=== PATIENT | male | born 1980 | race Caucasian/White ===

== ENCOUNTER 2016-12-26 21:51 | Emergency (ER) | payer MEDICAID ==
[2016-12-26] MEDS ORDERED: OXYCODONE/APAP 5/325 TAB PO ONE (23:33)
[2016-12-26] MEDS ORDERED: PENICILLIN VK 500 MG TAB PO ONE (23:33)
[2016-12-26] MEDS ORDERED: IBUPROFEN 600 MG TAB PO ONE (23:33)
[2016-12-26] MEDS ORDERED: PENICILLIN VK 250 MG TAB ONE (23:35)
--- NOTE | 2016-12-26 23:37 | EDPHY ---
H & P Time Seen by Provider: 12/26/16 23:19 HPI/ROS: CHIEF COMPLAINT: Toothache HISTORY OF PRESENT ILLNESS: This is a 36-year-old male presenting to the emergency department complaining of left lower dental pain x2 days. Patient states it has been a long time since he has seen a dentist denies any fever nausea vomiting. Intermittent smoker. Denies any chest pain or shortness of breath REVIEW OF SYSTEMS: Constitutional: No fever, no chills. Decreased p.o. intake due to dental pain Eyes: No discharge. No blurred vision ENT: No sore throat. Toothache Cardiovascular: No chest pain, no palpitations. Respiratory: No cough, no shortness of breath. Gastrointestinal: No abdominal pain, no vomiting. Musculoskeletal: No back pain. Skin: No rashes. Neurological: No headache. Smoking Status: Current some day smoker Physical Exam: General Appearance: Alert and no distress. Appears uncomfortable Eyes: Pupils equal and round no injection. Mouth: Many dental caries mandibular and maxillary, missing teeth, broken teeth no trismus no drooling no facial swelling Respiratory: Nonlabored respiratory effort. Cardiac: regular rate and rhythm Musculoskeletal: Neck is supple and nontender. Extremities: full range of motion and are nontender. Skin: No rashes or lesions. Constitutional: Initial Vital Signs Temperature (C) 37 C 12/26/16 22:00 Heart Rate 98 12/26/16 22:00 Respiratory Rate 18 12/26/16 22:00 Blood Pressure 112/82 H 12/26/16 22:00 O2 Sat (%) 95 12/26/16 22:00 O2 Delivery Mode Room Air Allergies/Adverse Reactions: No Known Allergies Allergy (Unverified 12/26/16 22:00) Home Medications: Medication Instructions Recorded Penicillin V Potassium [Pen Vk 500 mg PO QID 10 Days 12/26/16 500mg (*)] oxyCODONE/APAP 5/325 [Percocet 1 - 2 tab PO Q4H PRN #20 tab 12/26/16 5/325 (*)] Medical Decision Making ED Course/Re-evaluation: Discussed ED plan of care: Pain meds, Pen-VK. Discussed dental block for patient he declined at this time 0030: Patient re-evaluation patient stable not in any distress, declines dental block for pain. Discharge home, discussed discharge instructions, patient to follow up with dental this week Differential Diagnosis: Other differential diagnosis considered but not limited to dental abscess, mastoiditis, and facial cellulitis - Data Points Medications Given: Discontinued Medications Ibuprofen (Motrin) 600 mg PO EDNOW ONE Stop: 12/26/16 23:34 Last Admin: 12/26/16 23:42 Dose: 600 mg Oxycodone/Acetaminophen (Percocet 5/325) 1 tab PO EDNOW ONE Stop: 12/26/16 23:34 Last Admin: 12/26/16 23:42 Dose: 1 tab Oxycodone/Acetaminophen (Percocet 5/325mg Prepack#4) 1 btl TAKEHOME EDNOW ONE Stop: 12/26/16 23:57 Last Admin: 12/27/16 00:22 Dose: 1 btl Penicillin V Potassium (Pen Vk) 500 mg PO EDNOW ONE PRN Reason: Protocol Stop: 12/26/16 23:34 Last Admin: 12/26/16 23:54 Dose: Not Given Penicillin V Potassium (Pen Vk) 250 mg PO EDNOW ONE PRN Reason: Protocol Stop: 12/26/16 23:40 Last Admin: 12/26/16 23:42 Dose: 250 mg Penicillin V Potassium (Pen Vk) 250 mg PO EDNOW ONE PRN Reason: Protocol Stop: 12/26/16 23:41 Last Admin: 12/26/16 23:42 Dose: 250 mg Departure - Departure Disposition: Home, Routine, Self-Care Clinical Impression: Toothache, Dental caries extending into dentin Condition: Good Instructions: Penicillin V (By mouth), Oxycodone/Acetaminophen (By mouth), Dental Abscess (ED), Dental Caries (ED), Toothache (ED) Referrals: Dental 911 [Outside] - As per Instructions [facility] [Outside] - As per Instructions NONE *PRIMARY CARE P,. [Primary Care Provider] - As per Instructions [facility],. [Clinic] - As per Instructions Prescriptions: oxyCODONE/APAP 5/325 [Percocet 5/325 (*)] 1 - 2 tab PO Q4H PRN #20 tab PRN Reason: Pain, Severe Penicillin V Potassium [Pen Vk 500mg (*)] 500 mg PO QID 10 Days
[2016-12-26] MEDS ORDERED: PENICILLIN VK 250 MG TAB PO ONE ×2 (23:39→23:40)
[2016-12-26] MEDS ORDERED: OXYCODONE/APAP 5/325MG PREPACK#4 BTL TAKEHOME ONE (23:56)
[2016-12-27] MEDS ORDERED: PENICILLIN VK 500 MG TAB PO SCH
[2016-12-27 00:26] VITALS: BP 112/73; PULSE 70; RESP 16; TEMP 98.2; O2SAT 96
== END 2016-12-27 00:26 | disposition home or self-care (01) ==
DX: K08.89 Other specified disorders of teeth and supporting structures (principal); K02.9 Dental caries, unspecified; F17.200 Nicotine dependence, unspecified, uncomplicated

== ENCOUNTER 2016-12-27 03:44 | Emergency (ER) | payer MEDICAID ==
[2016-12-27 03:54] VITALS: BP 132/80; PULSE 90; RESP 18; TEMP 98.6; O2SAT 93
--- NOTE | 2016-12-27 04:22 | EDPHY ---
H & P Stated Complaint: dental abcess Time Seen by Provider: 12/27/16 04:18 HPI/ROS: Chief Complaint: Dental pain HPI: 36-year-old male was seen earlier tonight with dental pain. He is coming back stating that he is continuing to have pain and does not have a place to sleep. He was given penicillin and Percocet in the emergency department. He has been able to eat and drink since that time. Patient states he is just having a hard time finding a place to sleep and so re-presented to the emergency department hoping to stay here. Exam: General: Awake alert no acute distress HEENT: No significant submandibular swelling, no erythema Neck: Supple, chest: Normal respirations Heart: Normal perfusion Skin: No rash Neuro: Cranial nerves 2-12 are intact, strength is 5 in 5 in bilateral upper lower extremities, sensation grossly intact - Personal History Current Tetanus/Diphtheria Vaccine: Unsure Current Tetanus Diphtheria and Acellular Pertussis (TDAP): Unsure - Medical/Surgical History Hx Asthma: No Hx Chronic Respiratory Disease: No Hx Diabetes: No Hx Cardiac Disease: No Hx Renal Disease: No Hx Cirrhosis: No Hx Alcoholism: No Hx HIV/AIDS: No Hx Splenectomy or Spleen Trauma: No - Social History Smoking Status: Current some day smoker Constitutional: Initial Vital Signs Temperature (C) 37 C 12/27/16 03:50 Heart Rate 90 12/27/16 03:50 Respiratory Rate 18 12/27/16 03:50 Blood Pressure 132/80 H 12/27/16 03:50 O2 Sat (%) 93 12/27/16 03:50 O2 Delivery Mode Room Air Allergies/Adverse Reactions: No Known Allergies Allergy (Unverified 12/26/16 22:00) Home Medications: Medication Instructions Recorded Penicillin V Potassium [Pen Vk 500 mg PO QID 10 Days 12/26/16 500mg (*)] oxyCODONE/APAP 5/325 [Percocet 1 - 2 tab PO Q4H PRN #20 tab 12/26/16 5/325 (*)] Medical Decision Making ED Course/Re-evaluation: Patient presenting complaining of tooth pain in inability to sleep. He was seen here earlier and was given Percocet and penicillin. There is no acute emergent process at this time. Patient has been referred to dental aid. He will be discharged with follow up with Dental tomorrow. Departure - Departure Disposition: Home, Routine, Self-Care Clinical Impression: Toothache Condition: Good Instructions: Toothache (ED) Additional Instructions: Follow up with a dentist later today. Referrals: [facility] [Outside] - As per Instructions
== END 2016-12-27 04:44 | disposition home or self-care (01) ==
DX: K08.89 Other specified disorders of teeth and supporting structures (principal); F17.200 Nicotine dependence, unspecified, uncomplicated